=== PATIENT | female | born 1970 | race Caucasian/White ===

== ENCOUNTER 2017-08-27 15:22 | Inpatient (IN) | payer OTHER ==
[2017-08-27 20:13] VITALS: BMI 18.9
--- NOTE | 2017-08-27 21:28 | HP ---
CIWA Score - CIWA Score Nausea/Vomitin-Mild Nausea/No Vomiting Muscle Tremors: 4-Moderate,w/Arms Extend Anxiety: 4-Mod. Anxious/Guarded Agitation: 4-Moderately Restless Paroxysmal Sweats: 1-Minimal Palms Moist Orientation: 0-Oriented Tacttile Disturbances: 0-None Auditory Disturbances: 0-None Visual Disturbances: 0-None Headache: 0-None Present CIWA-Ar Total Score: 14 Admission ROS S - HPI Chief Complaint: WITHDRAWAL SX Allergies/Adverse Reactions: Allergies Allergy/AdvReac Type Severity Reaction Status Date / Time cefaclor [From Ceclor] Allergy Severe Hives Verified 02/15/16 12:20 History of Present Illness: 46 YEARS OLD FEMALE WITH LONG HISTORY OF XANAX ALCOHOL NICOTINE DEPENDENCE HAS ASTHMA AND DEPRESSION IS ADMITTED TO DETOX Exam Limitations: No Limitations - Ebola screening Have you traveled outside of the country in the last 21 days: No Have you had contact with anyone from an Ebola affected area: No Have you been sick,other than usual withdrawal symptoms: No Do you have a fever: No - Review of Systems Constitutional: Changes in sleep, Weight Stable EENT: reports: Blurred Vision (CONTACT LENS), Dental Problems (MULTIPLE TEETH MISSING) Respiratory: reports: SOB with Exertion Cardiac: reports: No Symptoms Reported GI: reports: Nausea, Poor Fluid Intake, Abdominal cramping : reports: No Symptoms Reported Musculoskeletal: reports: Back Pain, Muscle Pain, Neck Pain Integumentary: reports: Change in Color (BOTH ARMS AND LEGS) Neuro: reports: Seizure (LAST EPISODE AGE 26), Tremors Endocrine: reports: No Symptoms Reported Hematology: reports: No Symptoms Reported Psychiatric: reports: Judgement Intact, Orientated x3, Anxious, Depressed Other Systems: Reviewed and Negative Patient History - Patient Medical History Hx Anemia: No Hx Asthma: Yes (Pt is on MDI) Hx Chronic Obstructive Pulmonary Disease (COPD): No Hx Cancer: No Hx Cardiac Disorders: No Hx Congestive Heart Failure: No Hx Hypertension: No Hx Hypercholesterolemia: No Hx Pacemaker: No HX Cerebrovascular Accident: No 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) Hx Dementia: No Hx Diabetes: No Hx Gastrointestinal Disorders: No Hx Genitourinary Disorders: No Hx Sexually Transmitted Disorders: Yes (GENITAL HERPES) Hx Renal Disease (ESRD): No Hx Thyroid Disease: No Hx Human Immunodeficiency Virus (HIV): No (NEGATIVE HX) Hx Hepatitis C: Yes Hx Depression: Yes (NOT CURRENTLY ON MEDS) Hx Suicide Attempt: No (DENIES) Hx Bipolar Disorder: No Hx Schizophrenia: No - Patient Surgical History Past Surgical History: Yes Hx Neurologic Surgery: No Hx Cataract Extraction: No Hx Cardiac Surgery: No Hx Lung Surgery: No Hx Breast Surgery: No Hx Breast Biopsy: No Hx Abdominal Surgery: No Hx Appendectomy: No Hx Cholecystectomy: No Hx Genitourinary Surgery: No Hx Section: No Hx Orthopedic Surgery: No Hx Hysterectomy: No Other Surgical History: D & C X1 IN 1994 Anesthesia Reaction: No - PPD History Previous Implant?: Yes Documented Results: Negative w/o proof Implanted On Prior R Admission?: Yes Date: 02/17/16 PPD to be Administered?: Yes - Reproductive History Patient is a Female of Child Bearing Age (11 -55 yrs old): Yes Last Menstrual Period: 08/27/07 Patient : No - Smoking Cessation Smoking history: Current every day smoker Have you smoked in the past 12 months: Yes Aproximately how many cigarettes per day: 5 Cigars Per Day: 0 Hx Chewing Tobacco Use: No Initiated information on smoking cessation: Yes 'Breaking Loose' booklet given: 08/27/17 - Substance & Tx. History Hx Alcohol Use: Yes Hx Substance Use: Yes Substance Use Type: Alcohol, Cocaine, Heroin, Tranquilizers Hx Substance Use Treatment: Yes (2014) - Substances Abused Alcohol Route: Oral Frequency: Daily Amount used: 40OZX8 Age of first use: 10 Date of Last Use: 08/27/17 Alprazolam (Xanax) Route: Oral Frequency: Daily Amount used: 10 MG Age of first use: 44 Date of Last Use: 08/25/17 Family Disease History - Family Disease History Family Disease History: CA: Grandparent (GF-PROSTATE CA), Father (), Other: Father Admission Physical Exam BHS - Vital Signs Vital Signs: Vital Signs - 24 hr 08/27/17 20:00 Temperature 97.0 F L Pulse Rate 90 Respiratory 18 Rate Blood Pressure 116/86 - Physical General Appearance: Yes: Appropriately Dressed, Mild Distress, Alcohol on Breath , Thin, Tremorous, Irritable, Sweating, Anxious HEENTM: Yes: Hearing grossly Normal, Normal ENT Inspection, Normocephalic, Normal Voice Respiratory: Yes: Chest Non-Tender, Lungs Clear, Normal Breath Sounds, No Respiratory Distress, No Accessory Muscle Use Neck: Yes: Supple, Trachea in good position Breast: Yes: Breasts Symetrical Cardiology: Yes: Regular Rhythm, S1, S2, Tachycardia Abdominal: Yes: Normal Bowel Sounds, Non Tender, Soft Genitourinary: Yes: Within Normal Limits Back: Yes: Normal Inspection Musculoskeletal: Yes: full range of Motion, Gait Steady, Back pain, Muscle Pain Extremities: Yes: Normal Range of Motion, Non-Tender, Tremors, Other (MULTIPLE SKIN SCARS IV HEROIN TRACK) Neurological: Yes: Fully Oriented, Alert, Motor Strength 5/5, Normal Response, Depressed Affect Integumentary: Yes: Warm, Track [place] Lymphatic: Yes: Within Normal Limits - Diagnostic (1) Alcohol dependence with uncomplicated withdrawal Current Visit: Yes Status: Acute (2) Nicotine dependence Current Visit: Yes Status: Acute Qualifiers: Nicotine product type: cigarettes Substance use status: in withdrawal Qualified Code(s): F17.213 - Nicotine dependence, cigarettes, with withdrawal (3) Sedative/hypnotic withdrawal without complication Current Visit: Yes Status: Acute (4) Asthma Current Visit: Yes Status: Chronic Qualifiers: Asthma severity: mild intermittent Asthma complication type: uncomplicated Qualified Code(s): J45.20 - Mild intermittent asthma, uncomplicated (5) Hepatitis C Current Visit: No Status: Chronic Qualifiers: Viral hepatitis chronicity: chronic Hepatic coma status: without hepatic coma Qualified Code(s): B18.2 - Chronic viral hepatitis C (6) Sciatic leg pain Current Visit: Yes Status: Chronic Cleared for Admission [facility] - Detox or Rehab [facility] Level of Care: Medically Managed Detox Regimen/Protocol: Valium [facility] Breath Alcohol Content Breath Alcohol Content: 0.105 Urine Pregancy Test - Result Urine Test Results: Negative- NO Line Present Urine Drug Screen - Results Drug Screen Negative: No Urine Drug Screen Results: ROSSANA-Cocaine, OPI-Opiates, BZO-Benzodiazepines, MTD- Methadone
[2017-08-27] MEDS ORDERED: IBUPROFEN 400 MG TABLET (FP) PO PRN (21:40)
[2017-08-27] MEDS ORDERED: NICOTINE POLACRILEX 2 MG GUM BC PRN (21:40)
[2017-08-27] MEDS ORDERED: diazePAM 5 MG TABLET PO ONE (21:40)
[2017-08-27] MEDS ORDERED: P-EPHED 60MG/TRIPROLIDI 2.5MG TABLET PO PRN (21:40)
[2017-08-27] MEDS ORDERED: MAG HYDROX/AL HYDROX/SIMETH 30 ML UNIT-DOSE CUP PO PRN (21:40)
[2017-08-27] MEDS ORDERED: MAGNESIUM HYDROX 2400MG/30ML ORAL SUSPENSION 30 ML CUP PO PRN (21:40)
[2017-08-27] MEDS ORDERED: ACETAMINOPHEN 325 MG TABLET (FP) PO PRN (21:40)
[2017-08-27] MEDS ORDERED: guaiFENesin/D-METHORPHAN HB 10 ML UNIT-DOSE CUPS PO PRN (21:40)
[2017-08-27] MEDS ORDERED: LOPERAMIDE HCL 2 MG CAPSULE PO PRN (21:40)
[2017-08-27] MEDS ORDERED: MENTHOL/PHENOL 1 EACH UD MM PRN (21:40)
[2017-08-27] MEDS ORDERED: MAGNESIUM CITRATE 300 ML BOTTLE PO PRN (21:40)
[2017-08-27] MEDS ORDERED: ALBUTEROL SO4 6.7 GM HFA INHALER IH PRN (21:41)
[2017-08-27] MEDS: diphenhydrAMINE HCL 50 MG CAPSULE PO PRN (23:26)
[2017-08-27] MEDS: THIAMINE HCL 100 MG TABLET (FP) PO SCH (23:27)
[2017-08-27] MEDS: diazePAM 5 MG TABLET PO SCH (23:28)
[2017-08-27] MEDS: GABAPENTIN 300 MG CAPSULE (FP) PO SCH (23:33)
[2017-08-28 01:32] LABS: URINE APPEARANCE SLCLOUDY; URINE BILIRUBIN NEGATIVE (NEGATIVE); URINE BLOOD 1+ (NEGATIVE); URINE COLOR LTYELLOW; URINE GLUCOSE (UA) NEGATIVE (NEGATIVE); URINE KETONE NEGATIVE (NEGATIVE); URINE LEUK ESTERASE 2+ (NEGATIVE); URINE NITRITE NEGATIVE (NEGATIVE); URINE PROTEIN NEGATIVE (NEGATIVE); URINE UROBILINOGEN NEGATIVE mg/dL (0.2-1.0)
[2017-08-28 01:44] LABS: URINE BACTERIA MODERATE /hpf (NONE SEEN); URINE RBC 2 /hpf (0-3); URINE WBC 11 /hpf (3-5)
[2017-08-28] MEDS: diazePAM 5 MG TABLET PO SCH ×3 (05:36→22:18)
[2017-08-28] MEDS: GABAPENTIN 300 MG CAPSULE (FP) PO SCH ×3 (07:11→22:18)
--- NOTE | 2017-08-28 08:01 | CONSULT ---
[facility] Psychiatric Consult - Data Date of interview: 08/28/17 Admission source: [facility] Identifying data: This is 46 years old female with no psychiatric hospitalization history intoxicated with: Alcohol, Cocaine, Xanax, Opioids, Nicotine Substance Abuse History: - Smoking Cessation. Smoking history: Current every day smoker. Have you smoked in the past 12 months: Yes. Aproximately how many cigarettes per day: 5. Cigars Per Day: 0. Hx Chewing Tobacco Use: No. Initiated information on smoking cessation: Yes. 'Breaking Loose' booklet given : 08/27/17. - Substance & Tx. History. Hx Alcohol Use: Yes. Hx Substance Use : Yes. Substance Use Type: Alcohol, Cocaine, Heroin, Tranquilizers. Hx Substance Use Treatment: Yes (2014). - Substances Abused. Alcohol. Route: Oral. Frequency: Daily. Amount used: 40OZX8. Age of first use: 10. Date of Last Use: 08/27/17. Alprazolam (Xanax). Route: Oral. Frequency: Daily. Amount used: 10 MG. Age of first use: 44. Date of Last Use: 08/25/17 Medical History: Asthma, Sciatica history, Seizure history, HepC+ Psychiatric History: Denies past psychiatric history Physical/Sexual Abuse/Trauma History: Denies Additional Comment: Observation. Detox Unit Care Protocol Mental Status Exam - Mental Status Exam Alert and Oriented to: Person Patient Appearance: Unkempt Mood: Sad Affect: Flat Patient Behavior: Sedated Speech Pattern: Delayed Voice Loudness: Mildly Soft/Quiet Thought Process: Circumstantial Thought Disorder: Being Controlled Hallucinations: Denies Suicidal Ideation: Denies Homicidal Ideation: Denies Insight/Judgement: Fair Sleep: Difficulty falling asleep Appetite: Fair Muscle strength/Tone: Mild Hypotonicity Gait/Station: Shuffling Additional Comments: Observation. Detox Unit Care Protocol Psychiatric Findings - Problem List ([place] 1, 2,3) (1) Alcohol dependence with uncomplicated withdrawal Current Visit: Yes Status: Acute (2) Nicotine dependence Current Visit: Yes Status: Acute Qualifiers: Nicotine product type: cigarettes Substance use status: in withdrawal Qualified Code(s): F17.213 - Nicotine dependence, cigarettes, with withdrawal (3) Sedative/hypnotic withdrawal without complication Current Visit: Yes Status: Acute (4) Cocaine dependence, uncomplicated Current Visit: No Status: Acute (5) Opioid dependence with withdrawal Current Visit: No Status: Acute (6) Substance induced mood disorder Current Visit: No Status: Acute - Initial Treatment Plan Initial Treatment Plan: Observation. Detox Unit Care Protocol
--- NOTE | 2017-08-28 09:53 | EKG ---
Test Reason : Blood Pressure : / mmHG Vent. Rate : 072 BPM Atrial Rate : 072 BPM P-R Int : 138 ms QRS Dur : 082 ms QT Int : 434 ms P-R-T Axes : 074 081 061 degrees QTc Int : 475 ms NORMAL SINUS RHYTHM POSSIBLE LEFT ATRIAL ENLARGEMENT BORDERLINE ECG NO PREVIOUS ECGS AVAILABLE Confirmed by VERONICA CHAMORRO, SAMIR ([id number]) on 08/28/2017 9:53:27 AM Referred By: Confirmed By:SAMIR MARTIN MD
[2017-08-28 10:10] LABS: MCH 28.6 pg (25.7-33.7); MCHC 33.3 g/dl (32.0-36.0); MEAN CELL VOLUME 85.8 fl (80-96); MEAN PLT VOLUME 8.8 fl (7.5-11.1); PLATELET COUNT 169 K/MM3 (134-434); RDW 15.2 % (11.6-15.6); WHITE BLOOD COUNT 3.8 K/mm3 (4.0-10.0)
[2017-08-28] MEDS: PRENATAL VITAMINS W/ FOLIC ACID TABLET (FP) PO SCH (10:24)
[2017-08-28] MEDS: NICOTINE 14 MG/24 HOURS TOPICAL PATCH TD SCH (10:24)
[2017-08-28] MEDS: METHADONE HCL 10 MG TABLET PO SCH (10:24)
[2017-08-28] MEDS: diazePAM 5 MG TABLET PO PRN (10:27)
--- NOTE | 2017-08-28 10:50 | PN ---
S CIWA - CIWA Score Nausea/Vomitin Muscle Tremors: 3 Anxiety: 3 Agitation: 2 Paroxysmal Sweats: 1-Minimal Palms Moist Orientation: 0-Oriented Tacttile Disturbances: 1-Very Mild Itch/Numbness Auditory Disturbances: 1-Very Mild Visual Disturbances: 1-Very Mild Sensitivity Headache: 2-Mild CIWA-Ar Total Score: 17 BHS Progress Note (SOAP) Subjective: ALERT,IRRITABLE,ANXIOUS,INTERRUPTED SLEEP,TREMOR Objective: 08/28/17 10:49 Vital Signs Temperature 97.1 F L 08/28/17 10:34 Pulse Rate 90 08/28/17 10:34 Respiratory Rate 18 08/28/17 10:34 Blood Pressure 120/94 08/28/17 10:34 O2 Sat by Pulse Oximetry (%) EKG NSR 72/MIN 08/28/17 07:00 WBC 3.8 L D RBC 4.65 Hgb 13.3 Hct 39.9 MCV 85.8 MCHC 33.3 RDW 15.2 Plt Count 169 D LABS PENDING Assessment: 08/28/17 10:50 WITHDRAWAL SYMPTOM Plan: CONTINUE DETOX
[2017-08-28 11:20] LABS: ALBUMIN 3.7 g/dl (3.4-5.0); ALK PHOS 91 U/L (45-117); ANION GAP 12 (8-16); BILIRUBIN,TOTAL 0.8 mg/dL (0.2-1.0); CALCIUM 9.1 mg/dL (8.5-10.1); CO2 24 mmol/L (21-32); CREATININE 0.7 mg/dL (0.55-1.02); GLUCOSE,RANDOM 93 mg/dL (74-106); SGOT/AST 19 U/L (15-37); SGPT/ALT 19 U/L (12-78); TOT PROT 7.3 g/dl (6.4-8.2)
[2017-08-28] MEDS: THIAMINE HCL 100 MG TABLET (FP) PO SCH (22:18)
[2017-08-28] MEDS: diphenhydrAMINE HCL 50 MG CAPSULE PO PRN (22:18)
[2017-08-29] MEDS: GABAPENTIN 300 MG CAPSULE (FP) PO SCH ×3 (05:44→22:19)
[2017-08-29] MEDS: METHADONE HCL 10 MG TABLET PO SCH (05:45)
[2017-08-29] MEDS: diazePAM 5 MG TABLET PO PRN (05:46)
[2017-08-29] MEDS: NICOTINE 14 MG/24 HOURS TOPICAL PATCH TD SCH (10:23)
[2017-08-29] MEDS: PRENATAL VITAMINS W/ FOLIC ACID TABLET (FP) PO SCH (10:23)
[2017-08-29] MEDS: diazePAM 5 MG TABLET PO SCH ×2 (10:23→22:19)
--- NOTE | 2017-08-29 10:23 | PN ---
S CIWA - CIWA Score Nausea/Vomitin Muscle Tremors: 3 Anxiety: 3 Agitation: 2 Paroxysmal Sweats: 1-Minimal Palms Moist Orientation: 0-Oriented Tacttile Disturbances: 1-Very Mild Itch/Numbness Auditory Disturbances: 1-Very Mild Visual Disturbances: 0-None Headache: 2-Mild CIWA-Ar Total Score: 16 BHS Progress Note (SOAP) Subjective: ALERT,IRRITABLE,ANXIOUS,INTERRUPTED SLEEP,TREMOR,PAIN IN THE BODY Objective: 08/29/17 10:22 Vital Signs Temperature 97.5 F L 08/29/17 06:23 Pulse Rate 55 L 08/29/17 06:23 Respiratory Rate 16 08/29/17 06:23 Blood Pressure 101/68 08/29/17 06:23 O2 Sat by Pulse Oximetry (%) Laboratory Last Values WBC 3.8 K/mm3 (4.0-10.0) L D 08/28/17 07:00 RBC 4.65 M/mm3 (3.60-5.2) 08/28/17 07:00 Hgb 13.3 GM/dL (10.7-15.3) 08/28/17 07:00 Hct 39.9 % (32.4-45.2) 08/28/17 07:00 MCV 85.8 fl (80-96) 08/28/17 07:00 MCH 28.6 pg (25.7-33.7) 08/28/17 07:00 MCHC 33.3 g/dl (32.0-36.0) 08/28/17 07:00 RDW 15.2 % (11.6-15.6) 08/28/17 07:00 Plt Count 169 K/MM3 (134-434) D 08/28/17 07:00 MPV 8.8 fl (7.5-11.1) 08/28/17 07:00 Sodium 138 mmol/L (136-145) 08/28/17 07:00 Potassium 4.1 mmol/L (3.5-5.1) 08/28/17 07:00 Chloride 102 mmol/L (98-107) 08/28/17 07:00 Carbon Dioxide 24 mmol/L (21-32) 08/28/17 07:00 Anion Gap 12 (8-16) 08/28/17 07:00 BUN 13 mg/dL (7-18) D 08/28/17 07:00 Creatinine 0.7 mg/dL (0.55-1.02) 08/28/17 07:00 Creat Clearance w eGFR > 60 (>60) 08/28/17 07:00 Random Glucose 93 mg/dL (74-106) D 08/28/17 07:00 Calcium 9.1 mg/dL (8.5-10.1) 08/28/17 07:00 Total Bilirubin 0.8 mg/dL (0.2-1.0) D 08/28/17 07:00 AST 19 U/L (15-37) D 08/28/17 07:00 ALT 19 U/L (12-78) 08/28/17 07:00 Alkaline Phosphatase 91 U/L (45-117) 08/28/17 07:00 Total Protein 7.3 g/dl (6.4-8.2) 08/28/17 07:00 Albumin 3.7 g/dl (3.4-5.0) 08/28/17 07:00 Urine Color Ltyellow 08/27/17 23:21 Urine Appearance Slcloudy 08/27/17 23:21 Urine pH 6.0 (5.0-8.0) 08/27/17 23:21 Ur Specific [place] <= 1.005 (1.005-1.025) 08/27/17 23:21 Urine Protein Negative (NEGATIVE) 08/27/17 23:21 Urine Glucose (UA) Negative (NEGATIVE) 08/27/17 23:21 Urine Ketones Negative (NEGATIVE) 08/27/17 23:21 Urine Blood 1+ (NEGATIVE) H 08/27/17 23:21 Urine Nitrite Negative (NEGATIVE) 08/27/17 23:21 Urine Bilirubin Negative (NEGATIVE) 08/27/17 23:21 Urine Urobilinogen Negative mg/dL (0.2-1.0) 08/27/17 23:21 Urine RBC 2 /hpf (0-3) 08/27/17 23:21 Urine WBC 11 /hpf (3-5) 08/27/17 23:21 Ur Epithelial Cells Rare /hpf (FEW) 08/27/17 23:21 Urine Bacteria Moderate /hpf (NONE SEEN) 08/27/17 23:21 RPR Titer Nonreactive (NONREACTIVE) 08/28/17 07:00 Assessment: 08/29/17 10:22 WITHDRAWAL SYMPTOM Plan: CONTINUE DETOX
[2017-08-29] MEDS: diphenhydrAMINE HCL 50 MG CAPSULE PO PRN (22:19)
[2017-08-29] MEDS: THIAMINE HCL 100 MG TABLET (FP) PO SCH (22:19)
[2017-08-30] MEDS: METHADONE HCL 10 MG TABLET PO SCH (05:09)
[2017-08-30] MEDS: GABAPENTIN 300 MG CAPSULE (FP) PO SCH ×3 (05:09→22:17)
[2017-08-30] MEDS: diazePAM 5 MG TABLET PO PRN ×2 (05:11→13:48)
--- NOTE | 2017-08-30 10:22 | PN ---
S Progress Note (SOAP) Subjective: alert,irritable,interrupted sleep Objective: 08/30/17 10:21 Vital Signs Temperature 97.0 F L 08/30/17 06:00 Pulse Rate 59 L 08/30/17 06:00 Respiratory Rate 16 08/30/17 06:00 Blood Pressure 108/72 08/30/17 06:00 O2 Sat by Pulse Oximetry (%) Assessment: 08/30/17 10:21 withdrawal symptom Plan: continue detox,discharge in am at 0700
[2017-08-30] MEDS: PRENATAL VITAMINS W/ FOLIC ACID TABLET (FP) PO SCH (10:23)
[2017-08-30] MEDS: NICOTINE 14 MG/24 HOURS TOPICAL PATCH TD SCH (10:24)
[2017-08-30] MEDS: diazePAM 5 MG TABLET PO SCH ×2 (10:24→22:17)
[2017-08-30] MEDS: CYCLOBENZAPRINE HCL 10 MG TABLET (FP) PO PRN ×2 (13:48→22:17)
[2017-08-30] MEDS: diphenhydrAMINE HCL 50 MG CAPSULE PO PRN (22:17)
[2017-08-30] MEDS: THIAMINE HCL 100 MG TABLET (FP) PO SCH (22:17)
[2017-08-31] MEDS: GABAPENTIN 300 MG CAPSULE (FP) PO SCH (05:19)
[2017-08-31] MEDS: METHADONE HCL 10 MG TABLET PO SCH (05:19)
[2017-08-31 06:25] VITALS: BP 101/65; PULSE 72; TEMP 96.4
--- NOTE | 2017-08-31 08:20 | DS ---
[facility] Detox Discharge Summary Admission Date: 08/27/17 Discharge Date: 08/31/17 - History Present History: Alcohol Dependence, Sedative Dependence Additional Comments: FOLLOW UP WITH AFTER CARE PROGRAM ARRANGEMENT Pertinent Past History: ASTHMA HEPATITIS C NICOTINE DEPENDENCE [facility] METHADONE MAINTENANCE THERAPY PATIENT - Physical Exam Results Vital Signs: Vital Signs Temperature 96.4 F L 08/31/17 06:24 Pulse Rate 72 08/31/17 06:24 Respiratory Rate 18 08/31/17 06:24 Blood Pressure 101/65 08/31/17 06:24 O2 Sat by Pulse Oximetry (%) Pertinent Admission Physical Exam Findings: WITHDRAWAL SYMPTOM - Treatment Hospital Course: Detox Protocol Followed, Detoxed Safely, Responded well, Discharged Condition Good Patient has Accepted a Rehab Referral to: DECLINED - Medication Discharge Medications: Ambulatory Orders Albuterol Sulfate Inhaler - [Ventolin HFA Inhaler -] 2 inh PO Q4H PRN 02/15/16 Albuterol Sulfate Inhaler - [Ventolin HFA Inhaler -] 2 puff IH Q4H PRN #1 inhaler 08/30/17 Gabapentin [Neurontin -] 300 mg PO TID #90 cap 08/30/17 - Diagnosis (1) Alcohol dependence with uncomplicated withdrawal Status: Acute (2) Nicotine dependence Status: Acute Qualifiers: Nicotine product type: cigarettes Substance use status: in withdrawal Qualified Code(s): F17.213 - Nicotine dependence, cigarettes, with withdrawal (3) Sedative/hypnotic withdrawal without complication Status: Acute (4) Hepatitis C Status: Chronic Qualifiers: Viral hepatitis chronicity: chronic Hepatic coma status: without hepatic coma Qualified Code(s): B18.2 - Chronic viral hepatitis C (5) Seizure disorder Status: Suspected (6) Methadone maintenance therapy patient Status: Acute - AMA Did Patient Leave Against Medical Advice: No
[2017-08-31] MEDS ORDERED: diazePAM 5 MG TABLET PO SCH (10:00)
== END 2017-08-31 07:30 | disposition home or self-care (01) | DRG 773 ==
LOC: YASAS 15:22 → Y6N 22:31
PROVIDERS: ADMIT Internal Medicine; ATTEND Internal Medicine
PROC: HZ2ZZZZ Detoxification Services for Substance Abuse Treatment (ICD-10-PCS; principal; 2017-08-27)
DX: F11.23 Opioid dependence with withdrawal (principal); F13.230 Sedative, hypnotic or anxiolytic dependence with withdrawal, uncomplicated; F10.230 Alcohol dependence with withdrawal, uncomplicated; F14.20 Cocaine dependence, uncomplicated; F17.213 Nicotine dependence, cigarettes, with withdrawal; F32.9 Major depressive disorder, single episode, unspecified; F19.24 Other psychoactive substance dependence with psychoactive substance-induced mood disorder; B18.2 Chronic viral hepatitis C; J45.909 Unspecified asthma, uncomplicated; Z86.69 Personal history of other diseases of the nervous system and sense organs; Z87.42 Personal history of other diseases of the female genital tract
CPT/HCPCS: 36415; 80053; 81003; 81015; 85027; 86593; 93005; 93010

== ENCOUNTER 2018-10-19 12:28 | Inpatient (IN) | payer OTHER ==
[2018-10-19 12:56] VITALS: BMI 17.8
--- NOTE | 2018-10-19 18:01 | HP ---
COWS - Scale Resting Pulse: 1= [place] 81-100 Sweatin=Flushed/Facial Moisture Restless Observation: 1= Difficult to Sit Still Pupil Size: 0= Normal to Room Light Bone or Joint Aches: 1= Mild Discomfort Runny Nose/ Eye Tearin= Runny Nose/Eyes GI Upset > 30mins: 2= Nausea/Diarrhea Tremor Observation: 2= Slight Tremor Visible Yawning Observation: 1= 1-2x During Session Anxiety or Irritability: 2=Irritable/Anxious Goose Flesh Skin: 0=Smooth Skin COWS Score: 14 CIWA Score Nausea/Vomitin Muscle Tremors: 3 Anxiety: 2 Agitation: 2 Paroxysmal Sweats: 3 Orientation: 0-Oriented Tacttile Disturbances: 0-None Auditory Disturbances: 0-None Visual Disturbances: 0-None Headache: 0-None Present CIWA-Ar Total Score: 13 - Admission Criteria [facility] Guidelines: Admission for Medically Managed Detox: Requires at least one of the followin. CIWA greater than 12 2. Seizures within the past 24 hours 3. Delirium tremens within the past 24 hours 4. Hallucinations within the past 24 hours 5. Acute intervention needed for co occurring medical disorder 6. Acute intervention needed for co occurring psychiatric disorder 7. Severe withdrawal that cannot be handled at a lower level of care (continued vomiting, continued diarrhea, abnormal vital signs) requiring intravenous medication and/or fluids 8. Patient presents the following: CIWA greater than 12 Admission Criteria Met: Admission criteria met Admission ROS [facility] Chief Complaint: "I want to detox from Heroin, pills and alcohol Allergies/Adverse Reactions: Allergies Allergy/AdvReac Type Severity Reaction Status Date / Time cefaclor [From Ceclor] Allergy Severe Hives Verified 10/19/18 16:33 History of Present Illness: 47 y/o female with a long hx of polysubstance addiction presents requesting detox. Pt was last detoxed here in 2017 after which she stated she started using about two weeks after. States she was has not been sober since age 32. States she once had a seizure "when I was 25 because I shot cocaine", denies any seizure activity since then. Initial Vital Signs Temp Pulse Resp BP 97.3 F L 92 H 18 99/58 L 10/19/18 12:54 10/19/18 12:54 10/19/18 12:54 10/19/18 12:54 States her Bp always runs low Denies past nor current suicidal ideation or attempt. Hx: Asthma, Hep C, Sciatica Genital Herpes, Denies any psych hx. Exam Limitations: No Limitations, Clinical Condition, Intoxication (very somnolent although arouses to answer questions appropriatel when verbally stimulated loudly.), Language Barrier - Ebola screening Have you traveled outside of the country in the last 21 days: No Have you had contact with anyone from an Ebola affected area: No Have you been sick,other than usual withdrawal symptoms: No Do you have a fever: No - Review of Systems Constitutional: Loss of Appetite, Night Sweats EENT: reports: Blurred Vision (has contact lenses on) Respiratory: reports: No Symptoms reported Cardiac: reports: No Symptoms Reported GI: reports: Constipated, Diarrhea, Nausea, Poor Appetite : reports: No Symptoms Reported Musculoskeletal: reports: Back Pain Integumentary: reports: Flushing Neuro: reports: Unsteady Gait Endocrine: reports: No Symptoms Reported, Intolerance to Heat Hematology: reports: Easy Bleeding, Easy Bruising Psychiatric: reports: other (somnolent) Other Systems: Reviewed and Negative Patient History - Patient Medical History Hx Anemia: No Hx Asthma: Yes (Pt is on MDI) Hx Chronic Obstructive Pulmonary Disease (COPD): No Hx Cancer: No Hx Cardiac Disorders: No Hx Congestive Heart Failure: No Hx Hypertension: No (Has low blood pressure) Hx Hypercholesterolemia: No Hx Pacemaker: No HX Cerebrovascular Accident: No 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) Hx Dementia: No Hx Diabetes: No Hx Gastrointestinal Disorders: No Hx Genitourinary Disorders: No Hx Sexually Transmitted Disorders: Yes (GENITAL HERPES) Hx Renal Disease (ESRD): No Hx Thyroid Disease: No Hx Human Immunodeficiency Virus (HIV): No (NEGATIVE HX) Hx Hepatitis C: Yes (says she was treated x 3 months 10 yrs ago) Hx Depression: Yes (NOT CURRENTLY ON MEDS) Hx Suicide Attempt: No (DENIES) Hx Bipolar Disorder: No Hx Schizophrenia: No - Patient Surgical History Past Surgical History: Yes Hx Neurologic Surgery: No Hx Cataract Extraction: No Hx Cardiac Surgery: No Hx Lung Surgery: No Hx Breast Surgery: No Hx Breast Biopsy: No Hx Abdominal Surgery: No Hx Appendectomy: No Hx Cholecystectomy: No Hx Genitourinary Surgery: No Hx Section: No Hx Orthopedic Surgery: No Hx Hysterectomy: No Other Surgical History: D & C X1 IN 1994 Anesthesia Reaction: No - PPD History Previous Implant?: Yes Documented Results: Negative w/proof Implanted On Prior R Admission?: Yes Date: 08/29/17 PPD to be Administered?: Yes - Reproductive History Patient is a Female of Child Bearing Age (11 -55 yrs old): Yes Last Menstrual Period: 08/27/07 Patient : No - Smoking Cessation Smoking history: Current every day smoker Have you smoked in the past 12 months: Yes Aproximately how many cigarettes per day: 10 Cigars Per Day: 0 Hx Chewing Tobacco Use: No Initiated information on smoking cessation: Yes 'Breaking Loose' booklet given: 10/19/18 - Substance & Tx. History Hx Alcohol Use: Yes Hx Substance Use: Yes Substance Use Type: Alcohol, Cocaine, Heroin, Marijuana, Tranquilizers - Substances Abused Alprazolam (Xanax) Route: Oral Frequency: Daily Amount used: 5 (2mg) tablets Age of first use: 46 Date of Last Use: 10/19/18 Benzodiazepine (Klonopin) Route: Oral Frequency: Daily Amount used: 6 (1mg) tablets Age of first use: 46 Date of Last Use: 10/19/18 Alcohol Route: Oral Frequency: Daily Amount used: 15 (24oz) cans of 4 locos Age of first use: 10 Date of Last Use: 10/19/18 Heroin Route: Injection Frequency: Daily Amount used: 10 bags Age of first use: 14 Date of Last Use: 10/19/18 Crack Route: Smoking Frequency: Daily Amount used: $100 Age of first use: 14 Date of Last Use: 10/19/18 Marijuana/Hashish Route: Smoking Frequency: 3-6 times per week Amount used: 2 puffs Age of first use: 14 Date of Last Use: 10/16/18 Family Disease History - Family Disease History Family Disease History: [place]: Grandparent (Grand father -PROSTATE [place]), Father (), Other: Father Admission Physical Exam BHS - Vital Signs Vital Signs: Vital Signs - 24 hr 10/19/18 12:54 Temperature 97.3 F L Pulse Rate 92 H Respiratory 18 Rate Blood Pressure 99/58 L - Physical General Appearance: Yes: Disheveled, Moderate Distress HEENTM: Yes: Nasal Congestion Respiratory: Yes: No Respiratory Distress, No Accessory Muscle Use Neck: Yes: No masses,lesions,Nodules, Trachea in good position Breast: Yes: Breast Exam Deferred Cardiology: Yes: Regular Rate Abdominal: Yes: Normal Bowel Sounds, Non Tender, Flat, Soft Genitourinary: Yes: Within Normal Limits Back: Yes: Normal Inspection Musculoskeletal: Yes: full range of Motion, Other (gait slightly unsteady) Extremities: Yes: Other (healed track magaña in both arms/Hands) Neurological: Yes: Alert Integumentary: Yes: Track [place] (on both legs), Other Lymphatic: Yes: Within Normal Limits - Diagnostic (1) Sedative/hypnotic withdrawal without complication Current Visit: Yes Status: Acute (2) Alcohol dependence with uncomplicated withdrawal Current Visit: Yes Status: Acute (3) Opioid dependence with withdrawal Current Visit: Yes Status: Acute (4) Nicotine dependence Current Visit: Yes Status: Acute Qualifiers: Nicotine product type: cigarettes Substance use status: in withdrawal Qualified Code(s): F17.213 - Nicotine dependence, cigarettes, with withdrawal (5) Marijuana abuse Current Visit: Yes Status: Chronic (6) Cocaine dependence, uncomplicated Current Visit: Yes Status: Chronic (7) History of hepatitis C Current Visit: Yes Status: Resolved (8) Family history of sciatica Current Visit: Yes Status: Chronic (9) Genital herpes Current Visit: Yes Status: Chronic (10) Asthma Current Visit: Yes Status: Chronic Qualifiers: Asthma severity: mild intermittent Asthma complication type: uncomplicated Qualified Code(s): J45.20 - Mild intermittent asthma, uncomplicated Cleared for Admission [facility] - Detox or Rehab [facility] Level of Care: Medically Managed Detox Regimen/Protocol: Methadone/Valium [facility] Breath Alcohol Content Breath Alcohol Content: 0.080 Urine Pregancy Test - Result Urine Test Results: Negative- NO Line Present Urine Drug Screen - Results Drug Screen Negative: No Urine Drug Screen Results: THC-Marijuana, ROSSANA-Cocaine, OPI-Opiates, BZO- Benzodiazepines, OXY-Oxycodone, FEN-Fentanyl
[2018-10-19] MEDS ORDERED: ACETAMINOPHEN 325 MG TABLET (FP) PO PRN (18:32)
[2018-10-19] MEDS ORDERED: LOPERAMIDE HCL 2 MG CAPSULE PO PRN (18:32)
[2018-10-19] MEDS ORDERED: MENTHOL/PHENOL 1 EACH UD MM PRN (18:32)
[2018-10-19] MEDS ORDERED: MAGNESIUM CITRATE 300 ML BOTTLE PO PRN (18:32)
[2018-10-19] MEDS ORDERED: MAGNESIUM HYDROX 2400MG/30ML ORAL SUSPENSION 30 ML CUP PO PRN (18:32)
[2018-10-19] MEDS ORDERED: MAG HYDROX/AL HYDROX/SIMETH 30 ML UNIT-DOSE CUP PO PRN (18:32)
[2018-10-19] MEDS ORDERED: P-EPHED 60MG/TRIPROLIDI 2.5MG TABLET PO PRN (18:32)
[2018-10-19] MEDS ORDERED: guaiFENesin/D-METHORPHAN HB 10 ML UNIT-DOSE CUPS PO PRN (18:32)
[2018-10-19] MEDS ORDERED: IBUPROFEN 400 MG TABLET (FP) PO PRN (18:32)
[2018-10-19] MEDS ORDERED: NICOTINE POLACRILEX 2 MG GUM BC PRN (18:32)
[2018-10-19] MEDS ORDERED: ALBUTEROL SO4 8 GM HFA INHALER IH PRN (18:34)
[2018-10-19] MEDS ORDERED: ALBUTEROL SO4 2.5/IPRATROPIUM 0.5 INH SOL 3 ML VIAL.NEB. NEB PRN (18:34)
[2018-10-19] MEDS ORDERED: diazePAM 5 MG TABLET PO ONE (19:15)
[2018-10-19] MEDS ORDERED: METHADONE HCL 10 MG TABLET (FOR DETOX USE ONLY) PO ONE ×2 (19:15→23:00)
[2018-10-19] MEDS: NICOTINE 14 MG/24 HOURS TOPICAL PATCH TD SCH (21:12)
[2018-10-19] MEDS ORDERED: MELATONIN 5 MG TABLETS PO PRN (22:00)
[2018-10-19 23:10] LABS: URINE APPEARANCE CLEAR; URINE BILIRUBIN NEGATIVE (<2.0 mg/dL); URINE COLOR LTYELLOW; URINE GLUCOSE (UA) NEGATIVE (NEGATIVE); URINE KETONE NEGATIVE (NEGATIVE); URINE LEUK ESTERASE NEGATIVE (NEGATIVE); URINE NITRITE NEGATIVE (NEGATIVE); URINE PROTEIN NEGATIVE (NEGATIVE); URINE UROBILINOGEN NEGATIVE mg/dL (0.2-1.0)
[2018-10-19] MEDS: THIAMINE HCL 100 MG TABLET (FP) PO SCH (23:12)
[2018-10-19] MEDS: diazePAM 5 MG TABLET PO SCH (23:12)
[2018-10-20] MEDS: diazePAM 5 MG TABLET PO SCH ×3 (05:48→22:17)
--- NOTE | 2018-10-20 09:58 | PN ---
[facility] CIWA - CIWA Score Nausea/Vomitin-No Nausea/No Vomiting Muscle Tremors: 3 Anxiety: 3 Agitation: 3 Paroxysmal Sweats: 3 Orientation: 0-Oriented Tacttile Disturbances: 0-None Auditory Disturbances: 0-None Visual Disturbances: 0-None Headache: 0-None Present CIWA-Ar Total Score: 12 BHS COWS - Scale Resting Pulse: 0= [place] 80 or Below Sweatin=Flushed/Facial Moisture Restless Observation: 1= Difficult to Sit Still Pupil Size: 0= Normal to Room Light Bone or Joint Aches: 2= Severe Diffuse Aches Runny Nose/ Eye Tearin= Runny Nose/Eyes GI Upset > 30mins: 0= None Tremor Observation of Outstretched Hands: 2= Slight Tremor Visible Yawning Observation: 2= >3x During Session Anxiety or Irritability: 2=Irritable/Anxious Goose Flesh Skin: 0=Smooth Skin COWS Score: 13 S Progress Note (SOAP) Subjective: shakes sweats interrupted sleep body aches irritable restless chills Objective: 10/20/18 10:01 Vital Signs Temperature 97.0 F L 10/20/18 09:29 Pulse Rate 75 10/20/18 09:29 Respiratory Rate 16 10/20/18 09:29 Blood Pressure 126/78 10/20/18 09:29 O2 Sat by Pulse Oximetry (%) Laboratory Tests 10/19/18 22:34 Urine Color Ltyellow Urine Appearance Clear Urine pH 5.0 Ur Specific [place] 1.013 Urine Protein Negative Urine Glucose (UA) Negative Urine Ketones Negative Urine Blood Negative Urine Nitrite Negative Urine Bilirubin Negative Urine Urobilinogen Negative Ur Leukocyte Esterase Negative rest of labs pending aaox3 ambulating no acute distress Assessment: 10/20/18 10:07 withdrawal sx Plan: continue detox increase fluids labs pending
[2018-10-20] MEDS ORDERED: METHADONE HCL 10 MG TABLET (FOR DETOX USE ONLY) PO SCH (10:00)
[2018-10-20 10:18] LABS: HEMATOCRIT 41.2 % (32.4-45.2); HEMOGLOBIN 13.2 GM/dL (10.7-15.3); MCH 27.9 pg (25.7-33.7); MCHC 32.1 g/dl (32.0-36.0); MEAN CELL VOLUME 87.1 fl (80-96); MEAN PLT VOLUME 8.3 fl (7.5-11.1); PLATELET COUNT 170 K/MM3 (134-434); RBC 4.73 M/mm3 (3.60-5.2); RDW 15.7 % (11.6-15.6); WHITE BLOOD COUNT 3.7 K/mm3 (4.0-10.0)
[2018-10-20 10:37] LABS: ALK PHOS 83 U/L (45-117); ANION GAP 8 MMOL/L (8-16); BILIRUBIN,TOTAL 0.6 mg/dL (0.2-1); BLOOD UREA NITROGEN 17 mg/dL (7-18); CALCIUM 8.5 mg/dL (8.5-10.1); CHLORIDE 103 mmol/L (98-107); CO2 27 mmol/L (21-32); CREATININE 0.8 mg/dL (0.55-1.3); GLUCOSE,RANDOM 89 mg/dL (74-106); POTASSIUM 4.3 mmol/L (3.5-5.1); SGOT/AST 32 U/L (15-37); SGPT/ALT 22 U/L (13-61); SODIUM 138 mmol/L (136-145); TOT PROT 6.8 g/dl (6.4-8.2)
[2018-10-20] MEDS: diazePAM 5 MG TABLET PO PRN ×2 (10:47→19:15)
[2018-10-20] MEDS: NICOTINE 14 MG/24 HOURS TOPICAL PATCH TD SCH (10:47)
[2018-10-20] MEDS: PRENATAL VITAMINS W/ FOLIC ACID TABLET (FP) PO SCH (10:47)
[2018-10-20] MEDS: BACITRACIN 0.9 GM PACKET TP SCH ×2 (14:13→22:19)
[2018-10-20] MEDS: SULFAMETHOXAZOLE/TRIMETHOPRIM 800MG/160MG D.S. TABLET PO SCH ×2 (14:13→22:17)
--- NOTE | 2018-10-20 17:29 | PN ---
[facility] Progress Note Note: Alert and oriented. C/o back spasms/pain and states "I don't think I'm ready" and wants to leave AMA. The potential for overdose if leaves was discussed w/ the patient by the staff. Discussed symptom management and encouraged to take Valium, as prescribed for anxiety r/t withdrawal. Will prescribe Fexeril.
[2018-10-20] MEDS: CYCLOBENZAPRINE HCL 10 MG TABLET (FP) PO PRN (19:15)
[2018-10-20] MEDS: THIAMINE HCL 100 MG TABLET (FP) PO SCH (22:17)
--- NOTE | 2018-10-20 23:53 | EKG ---
Test Reason : Blood Pressure : / mmHG Vent. Rate : 078 BPM Atrial Rate : 078 BPM P-R Int : 126 ms QRS Dur : 076 ms QT Int : 412 ms P-R-T Axes : 076 083 067 degrees QTc Int : 469 ms NORMAL SINUS RHYTHM NORMAL ECG WHEN COMPARED WITH ECG OF 27-AUG-2017 22:31, NO SIGNIFICANT CHANGE WAS FOUND Confirmed by JABIER MAI MD ([id number]) on 10/20/2018 11:53:39 PM Referred By: Confirmed By:JABIER MAI MD
[2018-10-21 09:42] VITALS: BP 138/95; PULSE 109; TEMP 97.7
[2018-10-21] MEDS ORDERED: METHADONE HCL 5 MG TABLET (FOR DETOX USE ONLY) PO SCH (10:00)
[2018-10-21] MEDS ORDERED: diazePAM 5 MG TABLET PO SCH (10:00)
[2018-10-21] MEDS: BACITRACIN 0.9 GM PACKET TP SCH (10:04)
[2018-10-21] MEDS: PRENATAL VITAMINS W/ FOLIC ACID TABLET (FP) PO SCH (10:04)
[2018-10-21] MEDS: CYCLOBENZAPRINE HCL 10 MG TABLET (FP) PO PRN (10:04)
[2018-10-21] MEDS: NICOTINE 14 MG/24 HOURS TOPICAL PATCH TD SCH (10:04)
[2018-10-21] MEDS: SULFAMETHOXAZOLE/TRIMETHOPRIM 800MG/160MG D.S. TABLET PO SCH (10:04)
--- NOTE | 2018-10-21 10:31 | PN ---
S CIWA - CIWA Score Nausea/Vomitin-No Nausea/No Vomiting Muscle Tremors: 3 Anxiety: 3 Agitation: 4-Moderately Restless Paroxysmal Sweats: 3 Orientation: 0-Oriented Tacttile Disturbances: 0-None Auditory Disturbances: 0-None Visual Disturbances: 0-None Headache: 0-None Present CIWA-Ar Total Score: 13 BHS COWS - Scale Resting Pulse: 2= [place] 101-120 Sweatin=Flushed/Facial Moisture Restless Observation: 1= Difficult to Sit Still Pupil Size: 0= Normal to Room Light Bone or Joint Aches: 2= Severe Diffuse Aches Runny Nose/ Eye Tearin= Runny Nose/Eyes GI Upset > 30mins: 0= None Tremor Observation of Outstretched Hands: 2= Slight Tremor Visible Yawning Observation: 2= >3x During Session Anxiety or Irritability: 2=Irritable/Anxious Goose Flesh Skin: 0=Smooth Skin COWS Score: 15 [facility] Progress Note (SOAP) Subjective: nasal congestion sneezing sweats irritable body aches interrupted sleep Objective: 10/21/18 10:30 Vital Signs Temperature 97.7 F 10/21/18 09:41 Pulse Rate 109 H 10/21/18 09:41 Respiratory Rate 18 10/21/18 09:41 Blood Pressure 138/95 10/21/18 09:41 O2 Sat by Pulse Oximetry (%) Laboratory Tests 10/19/18 10/20/18 10/20/18 22:34 07:00 07:00 WBC 3.7 L RBC 4.73 Hgb 13.2 Hct 41.2 MCV 87.1 MCH 27.9 MCHC 32.1 RDW 15.7 H Plt Count 170 MPV 8.3 Sodium 138 Potassium 4.3 Chloride 103 Carbon Dioxide 27 Anion Gap 8 BUN 17 Creatinine 0.8 Creat Clearance w eGFR > 60 Random Glucose 89 Calcium 8.5 Total Bilirubin 0.6 AST 32 ALT 22 Alkaline Phosphatase 83 Total Protein 6.8 Albumin 3.0 L Urine Color Ltyellow Urine Appearance Clear Urine pH 5.0 Ur Specific [place] 1.013 Urine Protein Negative Urine Glucose (UA) Negative Urine Ketones Negative Urine Blood Negative Urine Nitrite Negative Urine Bilirubin Negative Urine Urobilinogen Negative Ur Leukocyte Esterase Negative RPR Titer 10/20/18 07:00 WBC RBC Hgb Hct MCV MCH MCHC RDW Plt Count MPV Sodium Potassium Chloride Carbon Dioxide Anion Gap BUN Creatinine Creat Clearance w eGFR Random Glucose Calcium Total Bilirubin AST ALT Alkaline Phosphatase Total Protein Albumin Urine Color Urine Appearance Urine pH Ur Specific [place] Urine Protein Urine Glucose (UA) Urine Ketones Urine Blood Urine Nitrite Urine Bilirubin Urine Urobilinogen Ur Leukocyte Esterase RPR Titer Nonreactive aaox3 ambulating no acute distress Assessment: 10/21/18 10:30 withdrawal sx Plan: increase fluids continue detox acitfed prn clonidine 0.1mg bid with parameters
[2018-10-21] MEDS ORDERED: LIDOCAINE 5% TOPICAL PATCH TP ONE (10:50)
[2018-10-21] MEDS ORDERED: cloNIDine HCL 0.1 MG TABLET PO SCH (10:50)
--- NOTE | 2018-10-21 10:59 | PN ---
S Progress Note Note: pt refused to complete detox. pt was told that there will be other medication to help with withdrawals, however she insisted that she wants to leave because she is not ready for continued detox. pt signed out AMA.
--- NOTE | 2018-10-21 11:01 | DS ---
[facility] Detox Discharge Summary Admission Date: 10/19/18 Discharge Date: 10/21/18 - History Present History: Alcohol Dependence, Opioid Dependence, Sedative Dependence - Physical Exam Results Vital Signs: Vital Signs Temperature 97.7 F 10/21/18 09:41 Pulse Rate 109 H 10/21/18 09:41 Respiratory Rate 18 10/21/18 09:41 Blood Pressure 138/95 10/21/18 09:41 O2 Sat by Pulse Oximetry (%) - Treatment Hospital Course: Detoxed Safely - Medication Discharge Medications: Ambulatory Orders Albuterol Sulfate Inhaler - [Ventolin HFA Inhaler -] 2 puff IH Q4H PRN #1 inhaler 08/30/17 Gabapentin [Neurontin -] 300 mg PO TID #90 cap 08/30/17 - Diagnosis (1) Alcohol dependence with uncomplicated withdrawal Current Visit: Yes Status: Chronic (2) Nicotine dependence Current Visit: Yes Status: Chronic Qualifiers: Nicotine product type: cigarettes Substance use status: uncomplicated Qualified Code(s): F17.210 - Nicotine dependence, cigarettes, uncomplicated (3) Opioid dependence with withdrawal Current Visit: Yes Status: Acute (4) Sedative/hypnotic withdrawal without complication Current Visit: Yes Status: Acute (5) Asthma Current Visit: Yes Status: Chronic Qualifiers: Asthma severity: mild intermittent Asthma complication type: uncomplicated Qualified Code(s): J45.20 - Mild intermittent asthma, uncomplicated (6) Cocaine dependence, uncomplicated Current Visit: Yes Status: Chronic (7) Family history of sciatica Current Visit: Yes Status: Chronic (8) Genital herpes Current Visit: Yes Status: Chronic (9) Marijuana abuse Current Visit: Yes Status: Chronic (10) History of hepatitis C Current Visit: Yes Status: Resolved (11) Sciatica Current Visit: No Status: Acute (12) Substance induced mood disorder Current Visit: No Status: Acute (13) Hepatitis C Current Visit: Yes Status: Chronic Qualifiers: Viral hepatitis chronicity: chronic Hepatic coma status: without hepatic coma Qualified Code(s): B18.2 - Chronic viral hepatitis C (14) Sciatic leg pain Current Visit: No Status: Chronic (15) Seizure disorder Current Visit: No Status: Suspected - AMA Did Patient Leave Against Medical Advice: Yes (going home)
[2018-10-21] MEDS ORDERED: LIDOCAINE PATCH REMOVAL MC SCH (22:00)
[2018-10-22] MEDS ORDERED: LIDOCAINE 5% TOPICAL PATCH TP SCH (10:00)
[2018-10-23] MEDS ORDERED: METHADONE HCL 10 MG TABLET (FOR DETOX USE ONLY) PO SCH (10:00)
[2018-10-23] MEDS ORDERED: diazePAM 5 MG TABLET PO SCH (10:00)
[2018-10-24] MEDS ORDERED: METHADONE HCL 5 MG TABLET (FOR DETOX USE ONLY) PO SCH (06:00)
== END 2018-10-21 11:26 | disposition left against medical advice (07) | DRG 770 ==
LOC: YASAS 12:28 → Y6N 19:02
PROC: HZ2ZZZZ Detoxification Services for Substance Abuse Treatment (ICD-10-PCS; principal; 2018-10-19)
DX: F11.23 Opioid dependence with withdrawal (principal); F13.230 Sedative, hypnotic or anxiolytic dependence with withdrawal, uncomplicated; F10.230 Alcohol dependence with withdrawal, uncomplicated; F14.20 Cocaine dependence, uncomplicated; F12.10 Cannabis abuse, uncomplicated; F17.210 Nicotine dependence, cigarettes, uncomplicated; F19.24 Other psychoactive substance dependence with psychoactive substance-induced mood disorder; B18.2 Chronic viral hepatitis C; J45.20 Mild intermittent asthma, uncomplicated; A60.00 Herpesviral infection of urogenital system, unspecified; M54.30 Sciatica, unspecified side
CPT/HCPCS: 36415; 80053; 81003; 85027; 86593; 93005; 93010